=== PATIENT | female | born 1995 | race Caucasian/White ===

== ENCOUNTER 2025-01-26 10:22 | Outpatient (CLI) | payer OTHER, SELFPAY ==
[2025-01-26 13:34] LABS: Chlamydia DNA Amplified* NOT DETECTED (No Detected); GC DNA Amplified* NOT DETECTED (No Detected)
== END 2025-01-26 10:23 | disposition home or self-care (01) ==
LOC: NFLDUCREF 10:23
PROVIDERS: Visit Provider Physician Assistant
DX: R82.90 Unspecified abnormal findings in urine (principal); N39.0 Urinary tract infection, site not specified
CPT/HCPCS: 87086; 87491; 87591

== ENCOUNTER 2025-04-21 15:40 | Outpatient (CLI) | payer OTHER, SELFPAY ==
[2025-04-21 23:36] LABS: Chlamydia DNA Amplified* NOT DETECTED (No Detected); GC DNA Amplified* NOT DETECTED (No Detected)
== END 2025-04-21 15:41 | disposition home or self-care (01) ==
LOC: NFLDUCREF 16:12
PROVIDERS: Visit Provider Physician Assistant Surgical
DX: R30.0 Dysuria (principal)
CPT/HCPCS: 87491; 87591

== ENCOUNTER 2025-05-23 13:35 | Outpatient (CLI) | payer OTHER, SELFPAY | END 2025-05-23 13:36 | disposition home or self-care (01) | LOC: NFLDREF 05-28 15:53 | PROVIDERS: Visit Provider Nurse Practitioner Family | DX: R82.90 Unspecified abnormal findings in urine (principal) | CPT/HCPCS: 87086 ==